=== PATIENT | female | born 1975 ===

== ENCOUNTER 2017-07-29 15:40 | Emergency (ER) | payer OTHER ==
[~2017-07-29] VITALS: Ht 162.6 cm; Wt 60.3 kg
[~2017-07-29 15:40] MED LIST: ATABEX DHA CAP1 EACH; ATABEX EC CAPL1 EACH; PROGESTERONE200 MG; ROBITUSSIN DM118 M1 PO
[2017-07-29] MEDS ORDERED: ANTICONCEPTIVAS (16:06)
== END 2017-07-30 10:39 | disposition home or self-care (01) ==
LOC: ER 15:40
DX: N93.8 Other specified abnormal uterine and vaginal bleeding (principal); R10.2 Pelvic and perineal pain

== ENCOUNTER 2018-06-23 15:39 | Outpatient (CLI) | payer OTHER ==
[~2018-06-23 15:39] MED LIST changes: +ANTICONCEPTIVAS
== END 2018-06-23 15:50 | disposition home or self-care (01) ==
LOC: LAB 15:39
DX: D68.8 Other specified coagulation defects (principal); D69.6 Thrombocytopenia, unspecified

== ENCOUNTER 2018-07-08 06:56 | Day surgery (SDC) | payer OTHER | END 2018-07-08 13:25 | disposition home or self-care (01) | LOC: CIR.AMB 06:56 | DX: N72 Inflammatory disease of cervix uteri (principal) ==

== ENCOUNTER 2018-11-01 18:13 | Emergency (ER) | payer OTHER ==
[~2018-11-01] VITALS: Ht 162.6 cm; Wt 58.5 kg
== END 2018-11-01 22:12 | disposition home or self-care (01) ==
LOC: ER 18:13
DX: N93.8 Other specified abnormal uterine and vaginal bleeding (principal)

== ENCOUNTER → 2018-11-13 | Emergency (ER) | payer OTHER ==
[~2018-11-13] VITALS: Ht 162.6 cm; Wt 57.6 kg
== END | disposition home or self-care (01) ==
LOC: ER 14:21
DX: K52.9 Noninfective gastroenteritis and colitis, unspecified (principal)

== ENCOUNTER 2019-04-19 08:15 | Inpatient (IN) | payer OTHER ==
[~2019-04-19] VITALS: Ht 162.6 cm; Wt 59.4 kg
== END 2019-04-22 11:02 | DRG 743 ==
LOC: O/R 08:15 → SURH 04-21 08:15 → OB/GYN 04-21 16:45
PROVIDERS: ADMIT Obstetrics & Gynecology Gynecologic Oncology
PROC: 0UT70ZZ Resection of Bilateral Fallopian Tubes, Open Approach (ICD-10-PCS; 2019-04-21)
PROC: 0UT20ZZ Resection of Bilateral Ovaries, Open Approach (ICD-10-PCS; 2019-04-21)
PROC: 0UT90ZZ Resection of Uterus, Open Approach (ICD-10-PCS; principal; 2019-04-21 09:30)
DX: N93.8 Other specified abnormal uterine and vaginal bleeding (principal)